=== PATIENT | male | born 1940 | race Caucasian/White ===

== ENCOUNTER → 2021-12-09 | Outpatient (CLI) | payer MEDICARE, OTHER | LOC: EXRD 14:26 | DX: R06.02 Shortness of breath (principal) | CPT/HCPCS: 71046; 94060; 94729 ==

== ENCOUNTER → 2022-01-04 | Outpatient (CLI) | payer MEDICARE, OTHER | LOC: KOH-I 12:41 | DX: J44.9 Chronic obstructive pulmonary disease, unspecified (principal); R06.02 Shortness of breath | CPT/HCPCS: 71250 ==

== ENCOUNTER → 2022-01-26 | Day surgery (SDC) | payer MEDICARE, OTHER ==
[~2022-01-26] MED LIST: ASPIRIN EC81 MG PO; CRESTOR20 MG PO; ELIQUIS 2.5 MG2.5 MG PO; GLIPIZIDE10 MG PO; LOPRESSOR 50 MG50 MG PO; PROAIR HFA8.5 GM INH; PROCARDIA XL90 MG PO; VITAMIN D21250 MCG PO
== END | disposition home or self-care (01) ==
LOC: OR 06:48
DX: K22.2 Esophageal obstruction (principal); I48.91 Unspecified atrial fibrillation; K21.00 Gastro-esophageal reflux disease with esophagitis, without bleeding; K29.60 Other gastritis without bleeding; K25.9 Gastric ulcer, unspecified as acute or chronic, without hemorrhage or perforation; D68.9 Coagulation defect, unspecified; I10 Essential (primary) hypertension; E11.9 Type 2 diabetes mellitus without complications; E66.3 Overweight; Z68.27 Body mass index [BMI] 27.0-27.9, adult; Z79.01 Long term (current) use of anticoagulants; Z86.73 Personal history of transient ischemic attack (TIA), and cerebral infarction without residual deficits; Z87.891 Personal history of nicotine dependence; Z79.82 Long term (current) use of aspirin
CPT/HCPCS: 82962; J2250; J3010; J7040

== ENCOUNTER 2022-02-16 16:57 | Emergency (ER) | payer MEDICARE, OTHER | END 2022-02-16 19:55 | disposition left against medical advice (07) | LOC: ER1 16:57 | DX: Z53.21 Procedure and treatment not carried out due to patient leaving prior to being seen by health care provider (principal) ==

== ENCOUNTER → 2022-03-17 | Outpatient (CLI) | payer MEDICARE, OTHER | LOC: RAD 17:18 | DX: R06.02 Shortness of breath (principal) | CPT/HCPCS: 71046 ==